=== PATIENT | female | born 1995 | race Caucasian/White ===

== ENCOUNTER 2023-04-07 09:28 | Emergency (ER) | payer MEDICAID ==
[~2023-04-07] VITALS: Ht 167.6 cm; Wt 73.0 kg
[2023-04-07] MEDS ORDERED: IPRATROPIUM BROMIDE (0.02%) 0.5MG/2.5ML NEB HHN STA (10:08)
[2023-04-07] MEDS ORDERED: ALBUTEROL (0.083%) 2.5MG/3ML NEB HHN STA (10:08)
[2023-04-07] MEDS ORDERED: PREDNISONE 20MG TABLET PO STA (10:08)
[2023-04-07 10:36] VITALS: PULSE 76; RESP 18; O2SAT 97
[2023-04-07] MEDS ORDERED: P20 MT (11:42)
[2023-04-07] MEDS ORDERED: ALBU6.7H15 INH (11:42)
[2023-04-07 12:06] VITALS: BP 133/87; PULSE 98; RESP 18; TEMP 97.9
== END 2023-04-07 12:10 | disposition home or self-care (01) ==
LOC: ER 10:29
DX: J45.901 Unspecified asthma with (acute) exacerbation (principal); Z98.890 Other specified postprocedural states
CPT/HCPCS: 81025; 94644; 99285; J7512; Z7610

== ENCOUNTER 2023-11-25 18:47 | Emergency (ER) | payer MEDICAID ==
[~2023-11-25] VITALS: Ht 167.6 cm; Wt 79.0 kg
[~2023-11-25 18:47] MED LIST: ALBU6.7H15 INH; P20 MT; P50 MT
[2023-11-25 18:48] VITALS: BP 122/85; PULSE 87; RESP 20; TEMP 97.8; O2SAT 100
[2023-11-25] MEDS ORDERED: ALBU6.7H15 INH (18:51)
== END 2023-11-25 19:06 | disposition home or self-care (01) ==
LOC: ER 18:47
DX: J45.901 Unspecified asthma with (acute) exacerbation (principal); Z76.0 Encounter for issue of repeat prescription
CPT/HCPCS: 99281

== ENCOUNTER 2025-04-11 18:07 | Emergency (ER) | payer MEDICAID ==
[~2025-04-11] VITALS: Ht 165.1 cm; Wt 82.0 kg
[2025-04-11 18:19] VITALS: O2SAT 99
[2025-04-11 18:41] VITALS: BP 111/72; PULSE 73; RESP 16; TEMP 36.9; O2SAT 100
[2025-04-11] MEDS: IBUPROFEN 400MG TABLET PO ONE (20:21)
[2025-04-11] MEDS ORDERED: TOPUD MT (20:55)
[2025-04-11] MEDS ORDERED: IBUP-2028 MT (20:55)
== END 2025-04-11 21:27 | disposition home or self-care (01) ==
LOC: ER 18:07
DX: S93.401A Sprain of unspecified ligament of right ankle, initial encounter (principal); J45.909 Unspecified asthma, uncomplicated; X50.1XXA Overexertion from prolonged static or awkward postures, initial encounter; Y93.89 Activity, other specified; Y92.89 Other specified places as the place of occurrence of the external cause; Y99.8 Other external cause status
CPT/HCPCS: 73610; 73620; 99284; A6449; Z7610